=== PATIENT | female | born 2000 | race Two or more races ===

== ENCOUNTER 2023-03-21 21:20 | Emergency (ER) | payer OTHER ==
[~2023-03-21] VITALS: Ht 170.2 cm; Wt 52.9 kg
[2023-03-21] MEDS ORDERED: IBUP1TAB5 PO (22:45)
[2023-03-21] MEDS ORDERED: HYDROcodone-ACET 5/325MG TAB PO ONE (22:45)
[2023-03-21 23:23] VITALS: BP 134/70; PULSE 73; RESP 18; TEMP 98.4; O2SAT 99
== END 2023-03-21 22:54 | disposition home or self-care (01) ==
LOC: ER 21:20
DX: S06.0X0A Concussion without loss of consciousness, initial encounter (principal); S00.03XA Contusion of scalp, initial encounter; W22.8XXA Striking against or struck by other objects, initial encounter; Y93.89 Activity, other specified; Y92.89 Other specified places as the place of occurrence of the external cause; Y99.8 Other external cause status
CPT/HCPCS: 70450

== ENCOUNTER 2024-08-28 10:41 | Emergency (ER) | payer OTHER ==
[~2024-08-28] VITALS: Ht 170.2 cm; Wt 55.4 kg
[~2024-08-28 10:41] MED LIST: IBUP1TAB5 PO
--- NOTE | 2024-08-28 11:17 | ED.PDOC ---
SNOW TECHNICIAN HPI Comments 23 y.o female presents to the ED for a chief complaint of vaginal bleeding associated with pelvic cramping that started 3 days ago. Patient reports taking test 3 days ago which resulted positive and then went to a clinic for follow up that same day. Patient was advised to come back for reevaluation today but noted that vaginal bleeding had become heavier now and cramping has worsened as well. Patient states she took a second test the next day after visiting the clinic and that test resulted negative. Patient at this time states since bleeding began, going through one pad every hour. She denies any dizziness, fever, chills, back pain, nausea, vomiting. Patient denies any medical history or allergies. Chief Complaint: Pelvic Pain Time Seen by MD: 11:14 Reviewed Notes: Nurses Notes, Medications, Allergies Allergies: Coded Allergies: NO KNOWN ALLERGIES (Unverified , 03/21/23) Home Meds Active Scripts Ibuprofen Micronized (Ibuprofen) 600 Mg Tab, 1 TAB PO Q6HR, #20 TAB as needed for pain Prov:HERMELINDA AHUJA NP 03/21/23 Information Source: Patient Mode of Arrival: Ambulatory Timing: Days (3) Severity: Moderate Vaginal Discharge: None Vaginal Lesions: None Bleeding Quality: Dark Vaginal Mass: None Onset Of Mass/Bleeding: Spontaneous Last Consensual [place]: Unknown Control: None Symptoms of Possible : Missed Period, Feels Associated Signs and Symptoms: Vaginal Bleeding, Cramping Past Medical History PAST MEDICAL HISTORY: Denies Surgical History: Denies all surgeries SHOE DRESSER History: No Pertinent SHOE DRESSER History Family History Family History: Reviewed,noncontributory to illness Social History Smoker: Non-Smoker Alcohol: Denies ETOH Use Drugs: Denies Drug Use Lives In: Home Constitutional: denies: chills, diaphoresis, fatigue, fever, malaise, sweats, weakness, others EENTM: denies: blurred vision, double vision, ear bleeding, ear discharge, ear drainage, ear pain, ear ringing, eye pain, eye redness, hearing loss, mouth pain, mouth swelling, nasal discharge, nose bleeding, nose congestion, nose pain, photophobia, tearing, throat pain, throat swelling, voice changes, others Respiratory: denies: cough, hemoptysis, orthopnea, SOB at rest, shortness of breath, SOB with excertion, stridor, wheezing, others Cardiovascular: denies: chest pain, dizzy spells, diaphoresis, Dyspnea on exertion, edema, irregular heart beat, left arm pain, lightheadedness, palpitations, PND, syncope, others Gastrointestinal: reports: abdominal pain; denies: abdomen distended, blood streaked bowels, constipated, diarrhea, dysphagia, difficulty swallowing, hematemesis, melena, nausea, poor appetite, poor fluid intake, rectal bleeding, rectal pain, vomiting, others Genitourinary: reports: abnormal vagina bleeding, pain; denies: burning, dyspareunia, dysuria, flank pain, frequency, hematuria, incontinence, , vagina discharge, urgency, others Neurological: denies: dizziness, fainting, headache, left sided numbness, left sided weakness, numbness, paresthesia, pre-existing deficit, right sided numbness, right sided weakness, seizure, speech problems, tingling, tremors, weakness, others Musculoskeletal: denies: back pain, gout, joint pain, joint swelling, muscle pain, muscle stiffness, neck pain, others Integumetry: denies: bruises, change in color, change in hair/nails, dryness, laceration, lesions, lumps, rash, wounds, others Allergic/Immunocompromised: denies: Difficulty Healing, Frequent Infections, Hives, Itching, others Hematologic/Lymphatic: denies: anemia, blood clots, easy bleeding, easy bruising, swollen glands, others Endocrine: denies: excessive hunger, excessive sweating, excessive thirst, excessive urination, flushing, intolerance to cold, intolerance to heat, unexplained weight gain, unexplained weight loss, others Psychiatric: denies: anxiety, bipolar disorder, depression, hopeless, panic disorder, schizophrenia, sleepless, suicidal, others All Other Systems: Reviewed and Negative Physical Exam General Appearance: Mild Distress HEENT: Other (Pupils and face symmetric. Moist mucous membranes.) Neck: Full Range of Motion, Normal Inspection Respiratory: Lungs Clear, No Accessory Muscle Use, No Respiratory Distress, Normal Breath Sounds Cardiovascular: No Edema, No JVD, Regular Rate/Rhythm Breast Exam: Deferred Gastrointestinal: Suprapubic, Tenderness Genitalia: Deferred Pelvic: Deferred Rectal: Deferred Extremities: Normal inspection, Normal range of motion, Non-tender, No pedal edema Neurologic: Alert (Oriented x4), Normal Affect, Normal Mood, Other (Ambulatory without difficulty) Cerebellar Function: NOT DONE Reflexes: NOT DONE Skin: Dry, Normal Color, Warm Lymphatic: NOT DONE Was a procedure done? Was a procedure done?: No Differential Diagnosis (SHOE DRESSER) Vaginal Bleeding: - Complete, - Incomplete, - Inevitable, - Threatened, Abruptio Placentae, Blood Loss Anemia, Ectopic , Menorrhagia, Menometrorrhagia, Menstrual Bleeding, Myomatous Uterus X-Ray, Labs, Meds, VS Vital Signs Date Time Temp Pulse Resp B/P (MAP) Pulse Ox O2 Delivery O2 Flow Rate FiO2 08/28/24 10:51 98.6 75 20 118/70 (86) 98 98.6 Lab Test 08/28/24 11:28 08/28/24 10:54 Range/Units White Blood Count 7.9 4.4-10.8 10^3/uL Red Blood Count 5.33 H 4.0-5.20 10^6/uL Hemoglobin 11.5 L 12.2-16.2 g/dL Hematocrit 36.1 36.0-46.0 % Mean Corpuscular Volume 67.7 L 80.0-100.0 fL Mean Corpuscular Hemoglobin 21.6 L 28.0-32.0 pg Mean Corpuscular Hemoglobin Concent 31.9 L 32.0-36.0 g/dL Red Cell Distribution Width 15.0 H 11.8-14.3 % Platelet Count 254 140-450 10^3/uL Mean Platelet Volume 7.8 6.9-10.8 fL Neutrophils (%) (Auto) 75.6 37.0-80.0 % Lymphocytes (%) (Auto) 16.0 10.0-50.0 % Monocytes (%) (Auto) 7.3 0.0-12.0 % Eosinophils (%) (Auto) 0.9 0.0-7.0 % Basophils (%) (Auto) 0.2 0.0-2.0 % Neutrophils # (Auto) 6.0 1.6-8.6 10 ^3/uL Lymphocytes # (Auto) 1.3 0.4-5.4 10 ^3/uL Monocytes # (Auto) 0.6 0-1.3 10 ^3/uL Eosinophils # (Auto) 0.1 0-0.8 10 ^3/uL Basophils # (Auto) 0 0-0.2 10 ^3/uL Nucleated Red Blood Cells 0.0 % Platelet Estimate Adequate Hypochromasia (manual) Slight Microcytosis Moderate Tear Drop Cells Few Prothrombin Time 10.9 9.3-11.8 sec Prothrombin Time INR 1.03 0.9-1.15 Activated Partial Thromboplast Time 27.6 24.5-34.5 SEC Sodium Level 137 136-145 mmol/L Potassium Level 4.0 3.5-5.1 mmol/L Chloride Level 103 98-107 mmol/L Carbon Dioxide Level 27 20-31 mmol/L Anion Gap 7 5-15 Blood Urea Nitrogen 9 9-23 mg/dL Creatinine 0.78 0.550-1.02 mg/dL Glomerular Filtration Rate Calc 109 >90 mL/min BUN/Creatinine Ratio 11.5 10.0-20.0 Serum Glucose 90 74-106 mg/dL Calcium Level 10.0 8.7-10.4 mg/dL Beta HCG, Quantitative 3.9 1.5-4.2 mIU/mL Urine Color Light-brown Yellow Urine Clarity Clear Clear Urine pH 6.5 5.0-9.0 Urine Specific [place] 1.007 1.001-1.035 Urine Protein Trace H Negative Urine Ketones Negative Negative Urine Blood 3+ H Negative /uL Urine Nitrite Negative Negative Urine Bilirubin Negative Negative Urine Urobilinogen Normal Negative mg/dL Urine Leukocyte Esterase 2+ Negative /uL Urine RBC 203 0 - 4 /hpf Urine Microscopic WBC 22 H 0-5 /HPF Urine Squamous Epithelial Cells Few <5 /hpf Urine Bacteria Few H None Seen /hpf Urine Glucose Normal Normal mg/dL Urine Test Negative Negative Current Medications Medications (Trade) Dose Ordered Sig/Cynthia Route Start Time Stop Time Status Last Admin Acetaminophen (Tylenol Tablet Or Capsule) 1,000 mg ONCE ONCE PO 08/28/24 11:30 08/28/24 11:31 DC 08/28/24 11:41 Ondansetron HCl (Zofran Po) 4 mg ONCE ONCE PO 08/28/24 11:30 08/28/24 11:31 DC 08/28/24 11:41 PROCEDURE(s): PELUS - PELVIC REASON: pelvic pain, vag bleed ORDER NUMBER(s): [id number], ACCESSION NUMBER(s): [id number] Procedure: US PELVIC Study Date and Requested Time: 08/28/2024 12:43 PM Study Description: US PELVIC History: pelvic pain, vag bleed Comparison: None Technique: Multiple transabdominal and transvaginal high resolution watt-scale images obtained of the uterus and adnexa with color Doppler for evaluation of adnexal blood flow and vascularity as indicated. Findings: Uterus measures 7.2 x 6.1 x 6 cm, with homogeneous echotexture. Endometrium within normal limits, measuring 6 mm in thickness with smooth contour. Cervix within normal limits. Right ovary measures 2.2 x 1.5 x 1.8 cm. Left ovary measures 2.4 x 2.6 x 2.1 cm with a 1.4 cm dominant follicle/ cyst. Normal ovarian color Doppler flow bilaterally. No evidence of free fluid in the cul-de-sac. Impression: Unremarkable sonographic study of the pelvis. No intrauterine is noted. X-Ray, Labs, Meds, VS Comment 23-year-old female with no significant past medical history brought in by family complaining of pelvic cramping and vaginal bleeding Vitals unremarkable Exam remarkable for mild suprapubic tenderness to palpation Rhythm strip independently interpreted by me: Sinus rhythm, rate 75, no ectopy. Pelvic ultrasound: Impression: Unremarkable sonographic study of the pelvis. No intrauterine is noted. CBC remarkable for hemoglobin 11.5, basic metabolic panel unremarkable, coag panel unremarkable, serum quantitative hCG negative, UA abnormal consistent with UTI Patient treated with the following in the ED: Tylenol 1 g p.o., Zofran ODT 4 mg p.o. 1 L 0.9 normal saline IV bolus, Rocephin 1 g IV, Toradol 30 mg IV On re-evaluation, patient states symptoms have improved. Vitals are stable. Patient appears stable for discharge with close outpatient follow-up with her OBGYN. Rx Keflex, ibuprofen, Zofran Time of 1ST Reevaluation: 11:56 Reevaluation 1ST: Unchanged Patient Education/Counseling: Diagnosis, Treatment, Prognosis Family Education/Counseling: Diagnosis, Treatment, Prognosis Departure 1 Departure Time of Disposition: 13:41 Impression: Primary Impression: Vaginal bleeding Additional Impression: UTI (urinary tract infection) Qualified Codes: N39.0 - Urinary tract infection, site not specified; R31.9 - Hematuria, unspecified Disposition: 01 HOME / SELF CARE / HOMELESS Condition: Stable Referrals: RUMA LOMELI DO Additional Instructions: Blood tests were unremarkable. Your urine test was abnormal, showing you have a urinary tract infection. Your ultrasound showed you are not and was otherwise unremarkable. I have prescribed antibiotics and medication to treat your symptoms. Follow-up with your OBGYN in 1-2 days. Return to ER for persistent or worsening symptoms. [place] [address] Ph: [phone] DIAGNOSTIC IMAGING Diagnostic Imaging Report : [id number] Signed PATIENT: JUAN PABLO PERKINS ACCT: [id number] UNIT: [id number] : 2000 LOC: ER ROOM / BED: / AGE / SEX: 23 / F ADM STATUS: REG ER SERVICE 1117 ORDERING PHYSICIAN: TOYIN SIN MD PROCEDURE(s): PELUS - PELVIC REASON: pelvic pain, vag bleed ORDER NUMBER(s): [id number], ACCESSION NUMBER(s): [id number] Procedure: US PELVIC Study Date and Requested Time: 08/28/2024 12:43 PM Study Description: US PELVIC History: pelvic pain, vag bleed Comparison: None Technique: Multiple transabdominal and transvaginal high resolution watt-scale images obtained of the uterus and adnexa with color Doppler for evaluation of adnexal blood flow and vascularity as indicated. Findings: Uterus measures 7.2 x 6.1 x 6 cm, with homogeneous echotexture. Endometrium within normal limits, measuring 6 mm in thickness with smooth contour. Cervix within normal limits. Right ovary measures 2.2 x 1.5 x 1.8 cm. Left ovary measures 2.4 x 2.6 x 2.1 cm with a 1.4 cm dominant follicle/ cyst. Normal ovarian color Doppler flow bilaterally. No evidence of free fluid in the cul-de-sac. Impression: Unremarkable sonographic study of the pelvis. No intrauterine is noted. e-Prescriptions Acetaminophen (Tylenol Extra Strength) 500 Mg Tab 1000 MG PO Q6HP PRN, #30 TAB Prov: TOYIN SIN MD 08/28/24 Ibuprofen Micronized (Ibuprofen) 600 Mg Tab 600 MG PO Q6HP PRN, #30 TAB Prov: TOYIN SIN MD 08/28/24 Ondansetron Odt 4MG Tab (ZOFRAN PO) 4 Mg Tb 4 MG PO TID PRN, #30 TAB ODT TAB-DISSOLVE IN MOUTH, THEN SWALLOW Prov: TOYIN SIN MD 08/28/24 Cephalexin Monohydrate (Cephalexin) 500 Mg Cap 1 CAP PO QID for 10 Days, #40 CAP Prov: TOYIN SIN MD 08/28/24 Discharged With: Relative Critical Care Note Critical Care Time?: No Stability Stability form required: No I personally scribed for TOYIN SIN MD ([email or web address]) on 08/28/24 at 11:17. Electronically submitted by Kate Paz ([facility]). I personally scribed for TOYIN SIN MD ([email or web address]) on 08/28/24 at 12:01. Electronically submitted by Kate Paz ([facility]). TOYIN SIN MD Aug 28, 2024 11:17
[2024-08-28] MEDS: ONDANSETRON ODT 4 MG TAB PO ONE (11:41)
[2024-08-28] MEDS: ACETAMINOPHEN 500 MG TAB or CAP PO ONE (11:41)
[2024-08-28 12:01] LABS: Basophils # (auto) 0 10 ^3/uL (0-0.2); Eosinophils # (auto) 0.1 10 ^3/uL (0-0.8); Lymphocytes # (auto) 1.3 10 ^3/uL (0.4-5.4); Mean Corpuscular Hgb Conc. 31.9 g/dL (32.0-36.0); Monocytes # (auto) 0.6 10 ^3/uL (0-1.3)
[2024-08-28 12:02] LABS: Basophils % (auto) 0.2 % (0.0-2.0); Eosinophils % (auto) 0.9 % (0.0-7.0); Hematocrit 36.1 % (36.0-46.0); Hemoglobin 11.5 g/dL (12.2-16.2); Mean Corpuscular Hemoglobin 21.6 pg (28.0-32.0); Mean Corpuscular Volume 67.7 fL (80.0-100.0); Monocytes % (auto) 7.3 % (0.0-12.0); Neutrophils % (auto) 75.6 % (37.0-80.0); Platelet Count (auto) 254 10^3/uL (140-450); Red Blood Cells 5.33 10^6/uL (4.0-5.20); White Blood Cell 7.9 10^3/uL (4.4-10.8)
[2024-08-28 12:14] LABS: Chloride 103 mmol/L (98-107); Sodium 137 mmol/L (136-145)
[2024-08-28 12:15] LABS: Anion Gap 7 (5-15); Carbon Dioxide 27 mmol/L (20-31)
[2024-08-28 12:20] LABS: BUN/Creatinine Ratio 11.5 (10.0-20.0); Glucose 90 mg/dL (74-106)
[2024-08-28 12:22] LABS: Blood Urea Nitrogen 9 mg/dL (9-23)
[2024-08-28 12:23] LABS: Hypochromia Slight; Platelet Estimate Adequate; Tear Drop Cells FEW
[2024-08-28 12:32] LABS: Urine Bacteria FEW /hpf (None Seen); Urine Blood 3+ /uL (Negative); Urine Clarity Clear (Clear); Urine Color Light-Brown (Yellow); Urine Protein, UAD TRACE (Negative); Urine Specific Gravity 1.007 (1.001-1.035); Urine Squamous Epithelial Cell FEW /hpf (<5); Urine Urobilinogen Normal (Negative); Urine WBC 22 /HPF (0-5); Urine pH 6.5 (5.0-9.0)
[2024-08-28 12:47] LABS: INR 1.03 (0.9-1.15); Partial Thromboplastin Time 27.6 SEC (24.5-34.5); Prothrombin Time 10.9 sec (9.3-11.8)
--- NOTE | 2024-08-28 13:23 | DVH ---
Procedure: US PELVIC Study Date and Requested Time: 08/28/2024 12:43 PM Study Description: US PELVIC History: pelvic pain, vag bleed Comparison: None Technique: Multiple transabdominal and transvaginal high resolution watt-scale images obtained of the uterus and adnexa with color Doppler for evaluation of adnexal blood flow and vascularity as indicat ed. Findings: Uterus measures 7.2 x 6.1 x 6 cm, with homogeneous echotexture. Endometrium within normal limits, cole suring 6 mm in thickness with smooth contour. Cervix within normal limits. Right ovary measures 2.2 x 1.5 x 1.8 cm. Left ovary measures 2.4 x 2.6 x 2.1 cm with a 1.4 cm dominan t follicle/ cyst. Normal ovarian color Doppler flow bilaterally. No evidence of free fluid in the cul-de-sac. Impression: Unremarkable sonographic study of the pelvis. No intrauterine is noted.
[2024-08-28] MEDS ORDERED: CEPH500C PO (13:44)
[2024-08-28] MEDS ORDERED: ZOFR4T PO (13:44)
[2024-08-28] MEDS ORDERED: IBUP1TAB5 PO (13:44)
[2024-08-28] MEDS ORDERED: ACET-1304 PO (13:44)
[2024-08-28] MEDS: KETOROLAC TROMETH 30 MG/ML 1ML VIAL IV ONE (14:12)
[2024-08-28] MEDS: SODIUM CHLORIDE 0.9% 1,000 ML IV ONE (14:12)
[2024-08-28] MEDS: cefTRIAXone 1GM/50ML D5W 50 ML IV ONE (14:12)
[2024-08-28 14:22] VITALS: BP 112/60; PULSE 70; RESP 19; TEMP 98.1; O2SAT 98
[2024-08-28] MEDS ORDERED: IBUP-1454 PO (17:23)
[2024-08-28] MEDS ORDERED: METH-1181 PO (17:23)
== END 2024-08-28 14:32 | disposition home or self-care (01) ==
LOC: ER 10:41
DX: N93.9 Abnormal uterine and vaginal bleeding, unspecified (principal); N39.0 Urinary tract infection, site not specified; R10.2 Pelvic and perineal pain
CPT/HCPCS: 36415; 76856; 80048; 81001; 81025; 84702; 85025; 85610; 85730; 96365; 96375; 99285; J0696; J1885; Q0162

== ENCOUNTER 2024-08-28 15:02 | Emergency (ER) | payer OTHER ==
[~2024-08-28] VITALS: Ht 170.2 cm; Wt 56.0 kg
[~2024-08-28 15:02] MED LIST changes: +ACET-1304 PO; +CEPH500C PO; +ZOFR4T PO
[2024-08-28 15:52] VITALS: BP 106/56; PULSE 18; RESP 18; TEMP 98.5; O2SAT 98
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
[2024-08-28] MEDS ORDERED: IBUP-1454 PO (17:23)
[2024-08-28] MEDS ORDERED: METH-1181 PO (17:23)
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
== END 2024-08-28 17:35 | disposition home or self-care (01) ==
LOC: ER 15:09
DX: M54.6 Pain in thoracic spine (principal); V89.2XXA Person injured in unspecified motor-vehicle accident, traffic, initial encounter; Y93.89 Activity, other specified; Y92.410 Unspecified street and highway as the place of occurrence of the external cause; Y99.8 Other external cause status
CPT/HCPCS: 72070

== ENCOUNTER 2025-04-03 13:58 | Emergency (ER) | payer OTHER ==
[~2025-04-03] VITALS: Ht 170.2 cm; Wt 58.9 kg
[~2025-04-03 13:58] MED LIST changes: +IBUP-1454 PO; +METH-1181 PO
[2025-04-03 14:45] LABS: Nucleated Red Blood Cells % 0.1 %
[2025-04-03 14:47] LABS: Hematocrit 36.2 % (36.0-46.0); Hemoglobin 11.5 g/dL (12.2-16.2); Mean Corpuscular Hemoglobin 21.8 pg (28.0-32.0); Mean Corpuscular Volume 68.4 fL (80.0-100.0)
[2025-04-03] MEDS: SODIUM CHLORIDE 0.9% 1,000 ML IVB ONE (14:47)
--- NOTE | 2025-04-03 15:30 | ED.PDOC ---
[employer] HPI Comments 24-year-old primigravida with no significant PMHx presented to the ER with chief complaints of vaginal bleeding when wiping. Patient reports that she is 5 weeks 5 days (was informed at [facility] based on her last LMP- 02/22/2025 and positive urine test.) Patient reports of mild abdominal cramping since yesterday which has been intermittent, associated with slight per vaginal bleeding/spotting today morning which she noticed after urination and on wiping with a tissue. Patient reports initially the tissue on wiping was light pink in color and later dark brown. She denies any urinary symptoms, passing of blood clots, pelvic pain, nausea, vomiting, fever, chills, trauma, abdominal pain or change in bowel movement. On initial assessment, patient is not in distress, vitals are stable. Chief Complaint: Vaginal Bleed Time Seen by MD: 14:28 Reviewed Notes: Medications, Allergies Allergies: Coded Allergies: NO KNOWN ALLERGIES (Unverified , 03/21/23) Home Meds Active Scripts Cephalexin (KEFLEX CAPSULE) 250 Mg Cp, 250 MG PO QID for 7 Days, #28 BOTTLE Prov:CHANDLER LOJA MD 04/03/25 Ibuprofen (Ibuprofen) 600 Mg Tab, 1 TAB PO TIDP PRN for 10 Days, #30 TAB 0 Refills Prov:ARELI DE LOS SANTOS NP 08/28/24 Methocarbamol (Methocarbamol) 500 Mg Tab, 500 MG PO Q8HPRN PRN for 7 Days, #21 TAB 0 Refills Prov:ARELI DE LOS SANTOS NP 08/28/24 Acetaminophen (Tylenol Extra Strength) 500 Mg Tab, 1000 MG PO Q6HP PRN, #30 TAB Prov:TOYIN SIN MD 08/28/24 Ibuprofen Micronized (Ibuprofen) 600 Mg Tab, 600 MG PO Q6HP PRN, #30 TAB Prov:TOYIN SIN MD 08/28/24 Ondansetron Odt 4MG Tab (ZOFRAN PO) 4 Mg Tb, 4 MG PO TID PRN, #30 TAB ODT TAB-DISSOLVE IN MOUTH, THEN SWALLOW Prov:TOYIN SIN MD 08/28/24 Cephalexin Monohydrate (Cephalexin) 500 Mg Cap, 1 CAP PO QID for 10 Days, #40 CAP Prov:TOYIN SIN MD 08/28/24 Ibuprofen Micronized (Ibuprofen) 600 Mg Tab, 1 TAB PO Q6HR, #20 TAB as needed for pain Prov:HERMLEINDA AHUJA NP 03/21/23 Information Source: Patient Mode of Arrival: Ambulatory Timing: Hours Vaginal Discharge: None Vaginal Lesions: None Bleeding Quality: Dark Onset Of Mass/Bleeding: Spontaneous Sexual Activity: Past Medical History PAST MEDICAL HISTORY: Denies Surgical History: Denies all surgeries PUBLIC OPINION SURVEY TAKER History: No Pertinent PUBLIC OPINION SURVEY TAKER History Family History Family History: Reviewed,noncontributory to illness Social History Smoker: Non-Smoker Alcohol: Denies ETOH Use Drugs: Denies Drug Use Lives In: Home Constitutional: denies: chills, diaphoresis, fatigue, fever, malaise, sweats, weakness, others EENTM: denies: blurred vision, double vision, ear bleeding, ear discharge, ear drainage, ear pain, ear ringing, eye pain, eye redness, hearing loss, mouth pain, mouth swelling, nasal discharge, nose bleeding, nose congestion, nose pain, photophobia, tearing, throat pain, throat swelling, voice changes, others Respiratory: denies: cough, hemoptysis, orthopnea, SOB at rest, shortness of breath, SOB with excertion, stridor, wheezing, others Cardiovascular: denies: chest pain, dizzy spells, diaphoresis, Dyspnea on exertion, edema, irregular heart beat, left arm pain, lightheadedness, palpitations, PND, syncope, others Gastrointestinal: denies: abdomen distended, abdominal pain, blood streaked bowels, constipated, diarrhea, dysphagia, difficulty swallowing, hematemesis, melena, nausea, poor appetite, poor fluid intake, rectal bleeding, rectal pain, vomiting, others Genitourinary: reports: , others (Slight vaginal bleeding); denies: abnormal vagina bleeding, burning, dyspareunia, dysuria, flank pain, frequency, hematuria, incontinence, pain, vagina discharge, urgency Neurological: denies: dizziness, fainting, headache, left sided numbness, left sided weakness, numbness, paresthesia, pre-existing deficit, right sided numbness, right sided weakness, seizure, speech problems, tingling, tremors, weakness, others Musculoskeletal: denies: back pain, gout, joint pain, joint swelling, muscle pain, muscle stiffness, neck pain, others Integumetry: denies: bruises, change in color, change in hair/nails, dryness, laceration, lesions, lumps, rash, wounds, others Allergic/Immunocompromised: denies: Difficulty Healing, Frequent Infections, Hives, Itching, others Hematologic/Lymphatic: denies: anemia, blood clots, easy bleeding, easy bruising, swollen glands, others Endocrine: denies: excessive hunger, excessive sweating, excessive thirst, excessive urination, flushing, intolerance to cold, intolerance to heat, unexplained weight gain, unexplained weight loss, others Psychiatric: denies: anxiety, bipolar disorder, depression, hopeless, panic disorder, schizophrenia, sleepless, suicidal, others Physical Exam General Appearance: Normal HEENT: Other (Absence of pallor or icterus, maintains eye contact) Neck: Full Range of Motion, Normal, Normal Inspection Respiratory: No Accessory Muscle Use, No Respiratory Distress, Normal Breath Sounds, Other (No rhonchi, stridor or wheezing present) Cardiovascular: No Edema, No JVD, No Murmur Breast Exam: Deferred Gastrointestinal: Non Tender, Normal Bowel Sounds Genitalia: Deferred Pelvic: Deferred Rectal: Deferred Extremities: Normal inspection, Normal range of motion, No pedal edema Neurologic: Alert, Other (No facial drooping, no sensorimotor deficits) Cerebellar Function: Normal Reflexes: Normal Skin: None Lymphatic: Other (The cervical lymphadenopathy palpated) Was a procedure done? Was a procedure done?: No Differential Diagnosis (PUBLIC OPINION SURVEY TAKER) Vaginal Bleeding: - Incomplete, - Missed, - Threatened, Ectopic , Placenta Previa X-Ray, Labs, Meds, VS Vital Signs Date Time Temp Pulse Resp B/P (MAP) Pulse Ox O2 Delivery O2 Flow Rate FiO2 04/03/25 17:45 97.9 75 16 106/67 (80) 100 97.9 04/03/25 14:01 98.2 84 16 113/67 99 98.2 Lab Test 04/03/25 14:40 04/03/25 14:20 Range/Units Urine Color Yellow Yellow Urine Clarity Clear Clear Urine pH 6.0 5.0-9.0 Urine Specific [place] 1.018 1.001-1.035 Urine Protein Negative Negative Urine Ketones Negative Negative Urine Blood Negative Negative /uL Urine Nitrite 2+ H Negative Urine Bilirubin Negative Negative Urine Urobilinogen Normal Negative mg/dL Urine Leukocyte Esterase Negative Negative /uL Urine RBC 2 0 - 4 /hpf Urine Microscopic WBC 3 0-5 /HPF Urine Squamous Epithelial Cells Few <5 /hpf Urine Bacteria Few H None Seen /hpf Urine Mucus Few None Seen Urine Glucose Normal Normal mg/dL White Blood Count 6.4 4.4-10.8 10^3/uL Red Blood Count 5.28 H 4.0-5.20 10^6/uL Hemoglobin 11.5 L 12.2-16.2 g/dL Hematocrit 36.2 36.0-46.0 % Mean Corpuscular Volume 68.4 L 80.0-100.0 fL Mean Corpuscular Hemoglobin 21.8 L 28.0-32.0 pg Mean Corpuscular Hemoglobin Concent 31.8 L 32.0-36.0 g/dL Red Cell Distribution Width 15.1 H 11.8-14.3 % Platelet Count 257 140-450 10^3/uL Mean Platelet Volume 8.7 6.9-10.8 fL Neutrophils (%) (Auto) 54.1 37.0-80.0 % Lymphocytes (%) (Auto) 33.1 10.0-50.0 % Monocytes (%) (Auto) 9.2 0.0-12.0 % Eosinophils (%) (Auto) 3.1 0.0-7.0 % Basophils (%) (Auto) 0.5 0.0-2.0 % Neutrophils # (Auto) 3.5 1.6-8.6 10 ^3/uL Lymphocytes # (Auto) 2.1 0.4-5.4 10 ^3/uL Monocytes # (Auto) 0.6 0-1.3 10 ^3/uL Eosinophils # (Auto) 0.2 0-0.8 10 ^3/uL Basophils # (Auto) 0 0-0.2 10 ^3/uL Nucleated Red Blood Cells 0.1 % Beta HCG, Quantitative 6.9 H 1.5-4.2 mIU/mL Current Medications Medications (Trade) Dose Ordered Sig/Cynthia Route Start Time Stop Time Status Last Admin Sodium Chloride 1,000 ml @ 1,000 mls/hr Q1H ONCE IVB 04/03/25 14:15 04/03/25 15:14 DC 04/03/25 14:47 Patient came in with complaints of slight vaginal bleeding. Beta HCG levels were 6.9 which does not correlate with 5 weeks of as stated by the patient. An ultrasound was done which showed 'No intrauterine gestational sac visualized on transabdominal sonographic imaging. Patient refused transvaginal examination. Correlate with clinical Findings, serial beta HCG levels, and follow-up ultrasound; Right ovary appears within normal limits. Left ovary is not visualized on this exam.; Thickened appearing endometrium.' CBC shows slight anemia but otherwise is within normal limits. Patient was counseled regarding the possibility of being non-, her beta HCG levels and regarding her ultrasound reports. She has been counseled to repeat her blood work in 1 weeks time. All questions and queries answered. She is now stable and is being discharged before discharge she was told she has urinary tract infection for which she was given Keflex antibiotic. She was told to continue taking vitamin. WBC within normal limits. No cramping. No bleeding. Stable. Images Reviewed?: Images reviewed and evaluated by me Time of 1ST Reevaluation: 16:10 Reevaluation 1ST: Unchanged Patient Education/Counseling: Diagnosis, Treatment Family Education/Counseling: Diagnosis, Treatment Departure 1 Departure Time of Disposition: 18:00 Impression: Primary Impression: UTI (urinary tract infection) Qualified Codes: N30.00 - Acute cystitis without hematuria Disposition: 01 HOME / SELF CARE / HOMELESS Condition: Stable e-Prescriptions Cephalexin (KEFLEX CAPSULE) 250 Mg Cp 250 MG PO QID for 7 Days, #28 BOTTLE Prov: CHANDLER LOJA MD 04/03/25 Discharged With: Self Critical Care Note Critical Care Time?: No Stability Stability form required: No Heart Score Heart Score: Heart Score Response (Comments) Value History N/A 0 EKG N/A 0 Age N/A 0 Risk Factors N/A 0 Troponin N/A 0 Total 0 JAYLYN MEHTA Apr 03, 2025 15:30 CHANDLER LOJA MD Apr 03, 2025 17:47
--- NOTE | 2025-04-03 15:53 | DVH ---
CLINICAL HISTORY: cramping COMPARISON:US PELVIC on DOS: 08/28/24 TECHNIQUE: Transabdominal grayscale sonographic imaging of the uterus and ovaries was performed, assisted by color Doppler technique. Duplex Doppler ultrasound of both ovaries was also performed. FINDINGS: The uterus measures 7.5 x 6.6 x 5.8 cm. There is homogeneous echogenicity. Endometrial thickness measures 2.6 cm, abnormally thickened. No intrauterine gestational sac identified on transabdominal sonographic imaging. Patient refused transvaginal examination. Right ovary measures 2.0 x 1.9 x 2.2 cm. Arterial and venous blood flow demonstrated. Left ovary is not visualized. IMPRESSION: 1. No intrauterine gestational sac visualized on transabdominal sonographic imaging. Patient refused transvaginal examination. Correlate with clinical Findings, serial beta HCG levels, and follow-up ultrasound. 2. Right ovary appears within normal limits. Left ovary is not visualized on this exam. 3. Thickened appearing endometrium.
[2025-04-03 17:30] LABS: Urine Protein, UAD Negative (Negative)
[2025-04-03 17:45] VITALS: BP 106/67; PULSE 75; RESP 16; TEMP 97.9; O2SAT 100
[2025-04-03] MEDS ORDERED: CEPH250C PO (17:47)
== END 2025-04-03 18:06 | disposition home or self-care (01) ==
LOC: ER 13:58
DX: O23.41 Unspecified infection of urinary tract in pregnancy, first trimester (principal); O20.0 Threatened abortion; N39.0 Urinary tract infection, site not specified; Z3A.01 Less than 8 weeks gestation of pregnancy
CPT/HCPCS: 36415; 76801; 81001; 84702; 85025; 96360; 99284; J7030